=== PATIENT | female | born 1995 | race Caucasian/White ===

== ENCOUNTER 2021-04-15 08:00 | Outpatient (CLI) | payer OTHER | END 2021-04-15 23:59 | disposition home or self-care (01) | LOC: LAB 08:00 | PROVIDERS: ATTEND Physician Assistant Medical | DX: R09.81 Nasal congestion (principal); Z20.822 Contact with and (suspected) exposure to COVID-19 ==

== ENCOUNTER 2024-01-18 09:58 | Outpatient (CLI) | payer OTHER ==
--- NOTE | 2024-01-19 09:01 | Mammography Report ---
BILATERAL DIGITAL DIAGNOSTIC MAMMOGRAM 3D/2D WITH SPOT COMPRESSION: 01/18/2024 CLINICAL: Baseline exam. Bilateral galactorrhea. No prior exams were available for comparison. Both breasts are extremely dense, which lowers the sensitivity of mammography (category d />75% gland ular tissue). No significant masses, calcifications, or other findings are seen in either breast. IMPRESSION: INCOMPLETE: NEEDS ADDITIONAL IMAGING EVALUATION There is no abnormality seen in either breast to correspond with the area of clinical concern and non -bloody discharge from the nipple described as milky discharge which likely represent pathological di scharge, however, ultrasound is recommended for further evaluation and is scheduled to immediately f ollow this examination. Based on the Tyrer Cuzick model (a risk assessment model) the patient's lifetime risk is 17.1% and he r 10 year risk is 0.6%. According to the ACR, ACS, and NCCN guidelines, an annual breast MRI exam umesh ng with mammogram is recommended if the patient's lifetime risk is 20% or greater. This exam was interpreted at Station ID: [id number]. NOTE: For mammograms, a report in lay terms will be sent to the patient. Approximately 15% of breast malignancies will not be visualized mammographically. In the management of a palpable breast mass, a negative mammogram must not discourage biopsy of a clinically suspicious lesion. Electronically Signed By: Timbo Salgado M.D. aty/:01/18/2024 11:25:54 ACR BI-RADS Category 0: Incomplete 3340F PARENCHYMAL PATTERN: (VD) - The breast(s) demonstrate(s) extremely dense parenchyma, limiting the sen sitivity of mammography. BI-RADS CATEGORY: (0) - 0 Ultrasound [id number] Immediate follow-up LATERALITY: (B)
--- NOTE | 2024-01-19 09:02 | Ultrasound Report ---
LIMITED ULTRASOUND OF LEFT BREAST: 01/18/2024 CLINICAL: Nipple discharge, left breast, not bloody. Comparison is made to exam dated: 01/18/2024 mammogram - [facility]. Real-time ultrasound of the left breast retroareolar was performed. Palencia scale images of the real-t jaqueline examination were reviewed. No significant abnormalities were seen sonographically in the left breast. IMPRESSION: NEGATIVE There is no sonographic evidence of malignancy. There is no abnormality seen in the left breast to correspond with the area of clinical concern and n on-bloody discharge from the nipple which likely represent physiological discharge, however, recommen d clinical follow up for persistent or worsening symptoms, or development of any clinically suspiciou s findings. Recommend initiating routine screening mammograms at age 40. Findings and recommendations were conveyed to the patient during today's evaluation. This exam was interpreted at Station ID: [id number]. Electronically Signed By: Timbo Salgado M.D. aty/:01/18/2024 12:23:28 Ultrasound BI-RADS: 1 Negative BI-RADS CATEGORY: (1) - 1 RECOMMENDATION: (ADDMAM) - Recommend additional mammographic views. recall n/a LATERALITY: (B)
--- NOTE | 2024-01-19 09:02 | Ultrasound Report ---
LIMITED ULTRASOUND OF RIGHT BREAST: 01/18/2024 CLINICAL: Nipple discharge, right breast, not bloody. Comparison is made to exam dated: 01/18/2024 mammogram - [facility]. Real-time ultrasound of the right breast retroareolar was performed. Palencia scale images of the real-t jaqueline examination were reviewed. No significant abnormalities were seen sonographically in the right breast. IMPRESSION: BENIGN There is no sonographic evidence of malignancy. There is no abnormality seen in the right breast to correspond with the area of clinical concern and non-bloody discharge from the nipple which likely represent physiological discharge, however, recomme nd clinical follow up for persistent or worsening symptoms, or development of any clinically suspicio us findings. Recommend initiating routine screening mammograms at age 38. Findings and recommendations were conveyed to the patient during today's evaluation. This exam was interpreted at Station ID: [id number]. Electronically Signed By: Timbo Salgado M.D. aty/:01/18/2024 12:21:47 Ultrasound BI-RADS: 2 Benign BI-RADS CATEGORY: (2) - 2 RECOMMENDATION: (ADDMAM) - Recommend additional mammographic views. no recall LATERALITY: (B)
== END 2024-01-18 09:59 | disposition home or self-care (01) ==
LOC: DI 09:58
PROVIDERS: ATTEND Student in an Organized Health Care Education/Training Program
DX: N64.3 Galactorrhea not associated with childbirth (principal); R92.30 Dense breasts, unspecified; Z80.3 Family history of malignant neoplasm of breast